=== PATIENT | female | born 1945 | race Caucasian/White ===

== ENCOUNTER 2016-09-12 17:52 | Observation (INO) ==
--- NOTE | 2016-09-12 18:44 | Diag Imaging Result Doc PS360 ---
HEAD/C-SPINE W/O CONTRAST - 09/12/2016 INDICATION: head injury/pain TECHNIQUE: A CT dose reduction protocol was used. COMPARISON: None FINDINGS: Head CT: The ventricles and sulci are normal in size and contour. There is moderate periventricular white matter hypodensity compatible with chronic microvascular disease. No intracranial mass or hemorrhage. The skull is intact. The sinuses, mastoids, and middle ears are clear. Cervical spine: Alignment is straightened. Vertebral body heights are preserved. There is extensive multilevel disc degeneration involving all the levels from C4-C7. There is also extensive facet degeneration mostly on the left side. No fracture or subluxation. IMPRESSION: 1. Chronic ischemic changes of the brain but no acute disease in the head. 2. Advanced cervical spondylosis but no acute injury. Electronically signed by Ibrahima Matthews 09/12/2016 6:41 PM
--- NOTE | 2016-09-12 18:53 | Diag Imaging Result Doc PS360 ---
RIBS UNILAT W/PA CHEST RIGHT - 09/12/2016 INDICATION: fall, rib pain TECHNIQUE: Three views COMPARISON: None FINDINGS: The chest is clear. The right-sided ribs are intact. IMPRESSION: Negative exam. Electronically signed by Ibrahima Matthews 09/12/2016 6:51 PM
[2016-09-12] MEDS ORDERED: TYLENOL PO ONE (19:20)
--- NOTE | 2016-09-12 19:21 | PROVIDER DOCUMENTATION ---
This chart was entered by Abiel Sheldon Scribe, acting as scribe for Raleigh English MD. HPI-Musculoskeletal Pain/Inj - GENERAL Chief Complaint: Head Injury Stated Complaint: FALL/CONFUSED Time Seen by Provider: 09/12/16 18:14 Source: patient, family - HX OF PRESENT ILLNESS-MUSKULOSKELTAL Nature of Presenting Problem: Pt is a 71 yowf who presents to ER with CC of fall injury. Pt's reports that pt fell off of their back porch at home because the railing fell loose, and pt fell on top of it, landing on her back/right lateral side. reports that he was in the living room when he heard some noise coming from their backyard and when he looked out the window, he could not see the pt or the railing. states that he was with pt within 10 seconds after he heard pt fall from the porch. and family reports that pt is now acting confused/altered, and repeatedly asks the same questions. No LOC noted, pt denies N/V/vision changes/neck pain, but does complain of lower right lateral rib pain. and family reports that pt took a bath and changed clothes before coming to ER. Quality of Pain: reports: aching, cramping Severity in ED: mild Onset/Duration: unsure, just prior to arrival Timing: still present Any recent injury?: Yes Locality of Occurance: Home Similar Symptoms Previously?: No Recently seen or treated by another doctor?: No - FALL INJURY Location of Pain/Injury: reports: chest (lower right lateral rib pain) Pain Radiation: reports: no radiation Reason for Fall: reports: lost balance (Porch railing came loose and fell) Symptoms prior to fall:: reports: none Loss of Consciousness: no loss of consciousness Injury Associated Symptoms: reports: chest pain (lower right lateral rib pain), other (short term memory loss). denies: arm pain, back/neck pain, diaphoresis, headaches, joint pain, muscle aches, shortness of breath, snap/crack/pop sensation, pain with inspiration, unable to bear weight, vomiting, weakness, trouble walking Review of Systems - Adult - REVIEW OF SYSTEMS - ADULT Constitutional: denies: chills, fever, fatique, night sweats, weight gain, weight loss Eyes: reports: no symptoms reported Ears, Nose, Mouth & Throat: reports: no symptoms reported Cardiovascular: reports: chest pain (lower right anterolateral rib pain). denies: edema, heart murmur, irregular heart rate, orthopnea, palpitations, poor circulation, PND, syncope Respiratory: reports: no symptoms reported Gastrointestinal: reports: no symptoms reported Genitourinary: reports: no symptoms reported Musculoskeletal: reports: muscle aches. denies: bone pain, back pain, joint pain, neck pain Integumentary: reports: no symptoms reported Neurological: reports: other (short term memory loss). denies: ataxia, dizziness/vertigo, headache/migraines, loss of balance, seizure, slurred speech Psychiatric: reports: no symptoms reported Endocrine: reports: no symptoms reported Hematologic/Lymphatic: reports: no symptoms reported Allergic/Immunologic: reports: no symptoms reported All Other Systems: Reviewed and Negative Past History - Adult - PAST MEDICAL HISTORY-ADULT Review of Records: reports: Nursing Assessment Review, Medications Reviewed - IMMUNIZATION STATUS Childhood Immunizations: See Nurse Assessment Flu Vaccine: See Nurse Assessment - SOCIAL HISTORY Smoking: non-smoker Physical Exam-Injury Related - Physical Exam-Injury Related Initial Vital Signs Reviewed: Yes General Appearance: appears well, alert, no apparent distress Eyes: PERRL/EOMI, pink conjunctivae Head, Ears, Nose, Mouth & Throat: moist mucous membranes, TMs normal. negative : TM abnormal, frontal tenderness Neck: non-tender, full range of motion, supple. negative: C-spine tenderness, decresed ROM, limited range of motion, pain on movement Respiratory: chest non-tender, lungs clear, normal breath sounds, no pleuratic chest pain, no respiratory distress, no accessory muscle use. negative: respiratory distress, decreased breath sounds, accessory muscle use, wheezing Cardiovascular: normal peripheral pulses, regular rate, rhythm. negative: bradycardia, tachycardia, irregularly irregular Chest/Breast: tenderness (lower right anterolateral rib tenderness) Abdominal Exam: normal bowel sounds, non tender, soft, no organomegaly, no pulsatile mass. negative: guarding, rebound, tenderness Back Exam: no CVA tenderness, no vertebral tenderness. negative: CVA tenderness , vertebral tenderness Extremity: normal range of motion, non-tender, normal gait, normal inspection, no pedal edema, no calf tenderness, normal capillary refill, pelvis stable. negative: deformity, erythema, inflammation, pulse deficit, pedal edema, swelling, tenderness Neurologic: chemical dependency therapist II-XII nml as tested, no motor/sensory deficits, other ( perseveration). negative: grossly normal Psych/Mental Status: normal mood/affect, normal thought content, normal thought process. negative: oriented x 3 (Mild short term memory loss; perseveration with details of fall) Progress - PLAN OF CARE/RESULTS Progress/Plan/Lab Results: Vital Signs - 8 hr 09/12/16 18:00 Temperature 97.4 F L Pulse Rate 76 Respiratory Rate 17 Blood Pressure 170/86 O2 Sat by Pulse Oximetry 99 Orders Category Date Time Status HEAD/C-SPINE W/O CONTRAST [CT] Stat Exams 09/12/16 18:14 Completed RIBS UNILAT W/PA CHEST RIGHT [RAD] Stat Exams 09/12/16 18:16 Completed CBC WITH ELECTRONIC DIFF [HEME] Stat Lab 09/12/16 19:17 Ordered CMP [COMPREHENSIVE METABOLIC PANEL] [CHEM] Stat Lab 09/12/16 19:17 Ordered MAGNESIUM [CHEM] Stat Lab 09/12/16 19:17 Ordered Acetaminophen [Tylenol] Med 09/12/16 19:20 Once 1,000 mg PO NOW ONE - XRAY 1 XRAY: Bilateral XRAY Study: Chest Impression: See EMR Report XRAY Interpretation: No obvious rib fx - Dr. English - CT/MRI 1 CT Study: Head Impression: See EMR Report CT Results: Negative - Dr. English 2 CT Study: Cervical Spine Impression: See EMR Report CT Results: No obvious fx - Dr. English Departure - Departure Date of Disposition Decision: 09/12/16 Time of Disposition Decision: 19:20 DIAGNOSIS: Concussion Qualifiers: Encounter type: initial encounter Loss of consciousness presence/duration: without LOC Qualified Code(s): S06.0X0A - Concussion without loss of consciousness, initial encounter Contusion of rib on right side Qualifiers: Encounter type: initial encounter Qualified Code(s): S20.211A - Contusion of right front wall of thorax, initial encounter Disposition: ADMITTED INPATIENT 09 Certified Medical Emergency: Emergent Condition: Good Referrals and Follow-Ups: Tico Blanco DO [Primary Care Provider] - - Critical Care Note This patient required my direct & personal management of CC.: No This chart was documented by the indicated scribe, (Abiel Sheldon, Dougie) and accurately reflects the services I performed and decisions made by me, Raleigh Trotter MD, as attested by the provider's signature.
[2016-09-12 19:22] LABS: MANUAL DIFF NEEDED? NO
[2016-09-12] MEDS ORDERED: TYLENOL PO PRN (19:22)
[2016-09-12 19:38] LABS: BASO% 0.4 % (0.0-0.8); EOS# 0.08 X1000 (0.0-0.7); EOS% 0.9 % (0.0-10.0); HEMATOCRIT 42.2 % (37.0-47.0); HEMOGLOBIN 14.3 g/dL (12.0-16.0); IMM GRAN# 0.03 X1000 (0.0-0.04); IMM GRAN% 0.3 % (0.0-0.5); LYMPH# 1.42 X1000 (1.2-3.4); LYMPH% 15.5 % (20.5-51.1); MCHC 33.9 g/dL (33-37); MCV 94.4 FL (81-99); MONO% 8.7 % (1.7-9.3); MPV 9.8 FL (7.4-10.4); NEUT% 74.2 % (42.2-75.2); PLT 188 X1000 (130-400); RBC 4.47 XMIL (4.2-5.4)
[2016-09-12 20:03] LABS: AGAP 13; ALBUMIN 4.4 g/dL (3.5-5.0); ALKALINE PHOSPHATASE 63 U/L (32-104); BUN 16 mg/dL (8-22); CALCIUM 9.4 mg/dL (8.8-10.2); CHLORIDE 99 mmol/L (98-107); COSMO 277; GOT 53 U/L (10-30); GPT 32 U/L (10-36); MAGNESIUM 1.8 mg/dL (1.5-2.7); POTASSIUM 3.7 mmol/L (3.5-5.1); SODIUM 138 mmol/L (136-145); TCO2 26 mmol/L (25-35); TOTAL BILIRUBIN 0.32 mg/dL (0.20-1.00); TOTAL PROTEIN 7.3 g/dL (6.3-8.3)
[2016-09-12] MEDS ORDERED: ZOFRAN IV PRN (21:16)
--- NOTE | 2016-09-12 22:30 | HISTORY AND PHYSICAL ---
PRIMARY CARE PROVIDER: Dr. Tico Blanco. CHIEF COMPLAINT: Fall with altered mental status per the family. HISTORY OF PRESENT ILLNESS: Ms. Thorne is a 71-year-old female who presents to the emergency room after having a fall today. She was out on the porch, I believe, leaning over some railing or lattice work cutting moreno. Today, is her granddaughter's 20th birthday and she was making bouquet to put on the kitchen table for the republican. The railing broke and the patient fell approximately 4 feet into bushes. The was inside and states that he was at the scene of the accident within roughly 10 seconds. The patient did not have loss of consciousness and did not hit her head, according to the . She did have a small amount of confusion. The took her inside to take a shower and change clothes. She denied any nausea, vomiting, visual changes, headache, neck pain, neck stiffness, shortness of breath, chest pain, abdominal pain, changes in bowel or bladder habits, dysuria, frequency, polydipsia, polyuria or polyphagia. However, on arrival to the emergency room she was noted to have intact long- term memory but her short-term recall was altered. She was having difficulty even remembering that she had fallen, why she was at the emergency room. However, all long-term memory was intact. The patient had right 5th to 6th rib pain with a small area of ecchymosis and also complained of mild right-sided leg pain related to a small contusion to her right hip as well as 2 small scratches to her lower portion to her right lower extremity. A CT scan was obtained in the emergency room which showed chronic ischemic changes, advanced cervical spondylosis, but no subluxation or fracture. A chest x-ray was obtained to examine the ribs; however, this was also a negative examination. The patient will be admitted on observation status with neuro checks to the medical floor. PAST MEDICAL HISTORY: Patient denies past medical history. PAST SURGICAL HISTORY: Knee arthroscopically, left Achilles tendon repair and BTL. SOCIAL HISTORY: Lives at home with her . Denies tobacco or illicit drugs. Does have occasional glass of wine. Had not drank prior to the event that occurred today. FAMILY HISTORY: Mother had a history of coronary artery disease. Father had a CVA. HOME MEDICATIONS: None. ALLERGIES: Penicillin causing a rash as a child. REVIEW OF SYSTEMS: Fourteen point review of systems conducted with the patient. Pertinent positives listed above in the HPI. All other systems reviewed and found to be negative. PHYSICAL EXAMINATION: VITAL SIGNS: Temperature 98.2 degrees, pulse 67, respirations 18, blood pressure 157/73, oxygenation is 99% on room air. GENERAL: Very pleasant 71-year-old female was alert and oriented x3 lying in the ER stretcher. No acute distress. very supportive at the bedside. HEENT: Head is atraumatic, normocephalic. Pupils equal, round, react to light. Extraocular eye movement intact. Sclerae is anicteric. Conjunctivae is pink. Oral mucosa is moist. Face is symmetrical. Facial movements are symmetrical. NECK: Supple. No cervical spine tenderness. No nuchal rigidity. No JVD. Trachea is midline. CARDIAC: Regular rhythm. S1-S2 appreciated. No murmurs, gallops, rubs. LUNGS: Clear to auscultation bilaterally. No rhonchi, wheezes or rales. Symmetrical rise and fall with respirations. Tenderness to right 5th to 6th rib noted on palpation. ABDOMEN: Abdomen is soft, nondistended, nontender. Bowel sounds present in all 4 quadrants. Normoactive. No pulsatile mass. No organomegaly. EXTREMITIES: No clubbing, cyanosis, or edema. 2+ pedal pulses bilaterally. Bilateral upper extremity swelling noted to individual interphalangeal joints consistent with the Abby nodes. However, patient denies pain. SKIN: Warm, dry. Ecchymosis noted to right forearm extending up to the elbow, right hip and thigh. Scratches or mild lacerations to the right lower extremity with a small 0.5 cm blood- filled blister. Ecchymosis noted to the upper portion of her right foot. NEUROLOGICAL: Alert and oriented x3. Cranial nerves 2-12 are grossly intact. Three item 30- second recall 2/3, 1 minute 3 item recall 3/3, and 1 minute and 30 seconds 3 item recall 3/3. DIAGNOSTIC DATA: CT of the head, chronic ischemic changes. No C-spine injury. Chest x-ray NAD. LABORATORY DATA: WBC within normal limits. Chemistry panel within normal limits. AST 53, ALT 32. ASSESSMENT AND PLAN: 1. Concussion with initial short-term memory loss. Patient presented to the emergency room this afternoon after a fall. She was unable to recall events from earlier . She did not remember falling at points. This has for the most part resolved. We will continue to check neuro checks q.2 hours. Patient did not have associated symptoms such as headache or nausea and vomiting. However, Zofran and Tylenol will be placed on her medical profile p.r.n. Made the patient and aware of postconcussive syndrome and to follow up with her primary care provider, Dr. Tico Blanco, should she have a delayed symptoms such as tinnitus, headache, vertigo or insomnia. 2. Fall. This was not specifically related to weakness of any sort. The patient did not have overt head trauma. No lacerations or contusions noted to the head. CT exam was negative. 3. Mild transaminitis. This is possibly related to patient's occasional wine use, could also be a component of mild steatohepatitis. Further recommendations per patient clinical course. Dictated by PILY Thurston for Alex. JASON Canela cc: DO Tevin Nazario CRNP Alex Penot, MD MTDD
[2016-09-13 06:42] LABS: MANUAL DIFF NEEDED? NO
[2016-09-13 06:47] LABS: BASO% 0.4 % (0.0-0.8); EOS# 0.21 X1000 (0.0-0.7); EOS% 3.1 % (0.0-10.0); HEMATOCRIT 40.4 % (37.0-47.0); HEMOGLOBIN 13.6 g/dL (12.0-16.0); LYMPH# 1.99 X1000 (1.2-3.4); LYMPH% 29.1 % (20.5-51.1); MCH 31.9 PG (27-31); MCHC 33.7 g/dL (33-37); MCV 94.6 FL (81-99); MONO# 0.92 X1000 (0.11-0.59); MONO% 13.4 % (1.7-9.3); MPV 9.9 FL (7.4-10.4); PLT 179 X1000 (130-400); RBC 4.27 XMIL (4.2-5.4)
[2016-09-13 07:51] VITALS: BP 131/71
--- NOTE | 2016-09-15 09:28 | DISCHARGE SUMMARY ---
ADMISSION DATE: 09/12/2016 DISCHARGE DATE: 09/13/2016 FINAL DISCHARGE DIAGNOSES: Altered mental status, status post fall. HOSPITAL COURSE: Ms. Thorne is a 71-year-old female with no significant past medical history, who was brought to the ER by family after the patient was noted to be confused after suffering a fall at home. In the ER, a head CT was done as well as a CT of the cervical spine that revealed chronic ischemic changes but no acute disease. The patient was admitted for observation. By the following morning, the patient was back to baseline and had no complaints. The patient also had a chest x-ray with an x-ray of her ribs that was noted to be negative. The patient was ultimately cleared for discharge home on September 14, 2016. DISCHARGE MEDICATIONS: None. FOLLOWUP INSTRUCTIONS: The patient will need to follow up with Dr. Tico Blanco in 1 week. cc: MD Tico Lemus,
== END 2016-09-13 13:04 | disposition home or self-care (01) ==
LOC: ED 17:52 → 3N 17:52 → SUATTDRO 20:37
PROVIDERS: ATTEND Internal Medicine